=== PATIENT | male | born 1985 | race Caucasian/White ===

== ENCOUNTER 2021-06-08 18:59 | Emergency (ER) | payer OTHER ==
[~2021-06-08] VITALS: Ht 180.3 cm; Wt 95.1 kg
--- NOTE | 2021-06-08 19:29 | PHYS DOC ---
General Adult EDM: Chief Complaint: GROIN PAIN HPI: HPI: ".. I was kicking a soccer ball. and I felt something.. pop in my lower groin and bag area... this was about 1800 hrs.. and it been hurting ever since..." Patient is a 35 year old ,male who presents with above hx and complaints of left groin pain and edema since 89 hours today after kicking a soccer ball. Patient localizes pain in left testicle and groin area. Does have obvious swelling in which appears to be area of more likely hernia presentation. No history of STDs. No history of immunosuppression. No history of recent travel. No history of severe ill contacts. Patient normally healthy. 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 Review of Systems: Review of Systems: Constitutional: Denies fever or chills Eyes: Denies change in visual acuity HENT: Denies nasal congestion or sore throat Respiratory: Denies cough or shortness of breath Cardiovascular: Denies chest pain or edema GI: Denies abdominal pain, nausea, vomiting, bloody stools or diarrhea. Complains of left groin pain : Denies dysuria Musculoskeletal: Denies back pain or joint pain Integument: Denies rash Neurologic: Denies headache, focal weakness or sensory changes Endocrine: Denies polyuria or polydipsia Lymphatic: Denies swollen glands Psychiatric: Denies depression or anxiety Family History: Family History: Noncontributory to presentation Current Medications: Current Meds: See nursing for home meds Allergies: Allergies: No known drug allergies Physical Exam: PE: Constitutional: Well developed, well nourished, no acute distress, non-toxic appearance. [] HENT: Normocephalic, atraumatic, bilateral external ears normal, oropharynx moist, no oral exudates, nose normal. [] Eyes: PERRLA, EOMI, conjunctiva normal, no discharge. [] Neck: Normal range of motion, no tenderness, supple, no stridor. [] Cardiovascular:Heart rate regular rhythm, no murmur [] Lungs & Thorax: Bilateral breath sounds clear to auscultation [] Abdomen: Bowel sounds normal, soft, no tenderness, no masses, no pulsatile masses. Left inguinal mass appears to be more of hematorma vs hernia. . Testicles relatively non tender and descended. Circumcised male. No discharge. Skin: Warm, dry, no erythema, no rash. [] Back: No tenderness, no CVA tenderness. [] Extremities: No tenderness, no cyanosis, no clubbing, ROM intact, no edema. [] Neurologic: Alert and oriented X 3, normal motor function, normal sensory function, no focal deficits noted. [] Psychologic: Affect anxious, judgement normal, mood normal. [] EKG: EKG: My interpretation EKG shows a sinus rhythm at 77 bpm. No acute morphology. [] Time of this EKG is 1957 hrs. Radiology/Procedures: Radiology/Procedures: [address] [address] IMAGING REPORT Signed PATIENT: ALEXA CONSTANTINO ACCOUNT: [id number] : 1985 LOCATION: ER AGE: 35 SEX: M EXAM STATUS: REG ER ORD. PHYSICIAN: JOLENE VAIL MD REASON: Groin pain PROCEDURE: TESTICULAR/SCROTUM CLINICAL HISTORY: Reason: Groin pain / Spl. Instructions: / History: COMPARISON: None available. TECHNIQUE: Ultrasound images of the scrotum was performed with cisse-scale and color doppler. FINDINGS: The right testis measures 5.4 x 3.1 x 2.8 cm. The left testis measures 5.2 x 3.8 x 2.7. There is no intratesticular abnormality. Testicular vascularity is symmetric and within normal limits. The epididymis is normal in appearance bilaterally. There is no hydrocele or varicocele. There is multiple small lymph nodes in the left groin in the area of interest as well as heterogeneity. IMPRESSION: 1. Normal testes with normal testicular blood flow. 2. Mild lymphadenopathy in the area of interest likely reactive. A short-term follow-up ultrasound could be performed if symptoms become worse. Electronically signed by: Magali Matthews III, MD (06/08/2021 11:23 PM) [facility] DICTATED AND SIGNED BY: MAGALI MATTHEWS III, MD DATE: 06/08/21 2954 CC: JOLENE VAIL MD; PCP,UNKNOWN ~MTH0 0 [][address] [address] IMAGING REPORT Signed PATIENT: ALEXA CONSTANTINO ACCOUNT: [id number] : 1985 LOCATION: ER AGE: 35 SEX: M EXAM STATUS: REG ER ORD. PHYSICIAN: JOLENE VAIL MD REASON: Lower abd. and groin pain PROCEDURE: ACUTE ABDOMEN SERIES EXAM: 2 VIEW ABDOMEN WITH ONE VIEW CHEST. HISTORY: Abdominal and groin pain. COMPARISON: Today's CT. FINDINGS: A frontal view of the chest and supine/upright views of the abdomen are obtained. There are no confluent infiltrates. There is no pneumothorax or pleural effusion. The heart is not enlarged. There is no pneumoperitoneum. There are no distended small bowel loops or significant air-fluid levels. There is gas distally. Stool throughout the colon is consistent with constipation. IMPRESSION: 1. No confluent infiltrates. 2. No evidence of obstruction. Correlate for constipation. Electronically signed by: Ani Fajardo MD (06/08/2021 9:36 PM) [facility] DICTATED AND SIGNED BY: TAMAR FAJARDO MD DATE: 06/08/212129 CC: JOLENE VAIL MD; PCP,UNKNOWN ~MTH0 [address] [place] [id number] IMAGING REPORT Signed PATIENT: ALEXA CONSTANTINO ACCOUNT: [id number] : 1985 LOCATION: ER AGE: 35 SEX: M EXAM STATUS: REG ER ORD. PHYSICIAN: JOLENE VAIL MD REASON: OMNI 240,30ML PO.OMNI 300,75ML IV. LEFT SIDE GROIN PAIN PROCEDURE: CT ABD PELV W/ORAL&IV CONTRAST EXAM: CT ABDOMEN/PELVIS WITH CONTRAST. HISTORY: Abdominal and left groin pain. TECHNIQUE: Computed tomography of the abdomen and pelvis was performed after the intravenous administration of iodinated contrast. One or more of the following individualized dose reduction techniques were utilized for this examination: 1. Automated exposure control. 2. Adjustment of the mA and/or kV according to patient size. 3. Use of iterative reconstruction technique. COMPARISON: None. FINDINGS: Lung windows through the visualized portions of the bases reveal no abnormality. Bone windows reveal no suspicious lesions. There is mild retrolisthesis at L3-4, and bilateral L3 pars interarticularis defects. The liver, gallbladder, pancreas, adrenal glands, and spleen are unremarkable. There are no pathologically enlarged lymph nodes. There are no renal or ureteral calculi. The kidneys are unremarkable. There is subcutaneous ecchymosis along the left inguinal region. The scrotum is not included but this appears to be mostly external to the spermatic cord. There is no intrapelvic or retroperitoneal hematoma. Stool throughout the colon suggests mild constipation. The appendix is not inflamed. There is no small bowel obstruction. IMPRESSION: 1. Ecchymosis along the left inguinal region. Correlate for direct injury. No intrapelvic or retroperitoneal hematoma. Electronically signed by: Ani Fajardo MD (06/08/2021 9:36 PM) [facility] DICTATED AND SIGNED BY: TAMAR FAJARDO MD DATE: 06/08/212130 CC: JOLENE VAIL MD; PCP,UNKNOWN ~MTH0 0 Heart Score: C/O Chest Pain: N/A Risk Factors: Risk Factors: DM, Current or recent (<one month) smoker, HTN, HLP, family h istory of CAD, obesity. Risk Scores: Score 0 - 3: 2.5% MACE over next 6 weeks - Discharge Home Score 4 - 6: 20.3% MACE over next 6 weeks - Admit for Clinical Observation Score 7 - 10: 72.7% MACE over next 6 weeks - Early Invasive Strategies Course & Med Decision Making: Course & Med Decision Making Pertinent Labs and Imaging studies reviewed. (See chart for details) Patient use ice packs as needed for the next 3 days. After 3 days may advance to moist heat if no reinjury. Follow-up primary care. Have them review ED work-up. Advised patient if this is a muscle tear in the groin area it may take a long time for adequate healing. Tylenol and ibuprofen for discomfort. Impression: 1. Lt. Groin muscle tear, with hematoma [] Omid Disclaimer: Dragon Disclaimer: This electronic medical record was generated, in whole or in part, using a voice recognition dictation system. Departure Departure: Referrals: PCP,UNKNOWN (PCP) Omid Disclaimer This chart was dictated in whole or in part using Voice Recognition software in a busy, high-work load, and often noisy Emergency Department environment. It may contain unintended and wholly unrecognized errors or omissions. JOLENE VAIL MD Jun 08, 2021 19:29
[2021-06-08] MEDS ORDERED: ONDANSETRON PF 4 MG/2 ML VIAL. IVP ONE (19:45)
[2021-06-08] MEDS ORDERED: FAMOTIDINE 20 MG/2 ML VIAL IVP ONE (19:45)
[2021-06-08] MEDS ORDERED: IV RINGERS SOLUTION,LACTATED 1,000 ML IV SCH (19:45)
[2021-06-08] MEDS ORDERED: KETOROLAC 30 MG/ML VIAL. IVP ONE (19:45)
[2021-06-08] MEDS ORDERED: IOHEXOL 300 MG/ML 75 ML VIAL. IV ONE (20:00)
[2021-06-08] MEDS ORDERED: IOHEXOL 240 MG/ML 50ML VIAL. ONE (20:07)
[2021-06-08 20:32] LABS: BASO # 0.1 x10^3/uL (0.0-0.2); BASO % 1 % (0-3); EOS # 0.1 x10^3/uL (0.0-0.7); EOS % 1 % (0-3); HEMATOCRIT 41.5 % (39.0-53.0); HEMOGLOBIN 14.5 g/dL (13.0-17.5); LYMPH # 2.1 x10^3/uL (1.0-4.8); LYMPH % 18 % (24-48); MEAN CORPUSCULAR HEMOGLOBIN 33 pg (25-35); MEAN CORPUSCULAR HGB CONC 35 g/dL (31-37); MEAN CORPUSCULAR VOLUME 95 fL (79-100); MONO # 0.6 x10^3/uL (0.0-1.1); MONO % 5 % (0-9); NEUT # 8.8 x10^3uL (1.8-7.7); NEUT % 76 % (31-73); PLATELET COUNT 183 x10^3/uL (140-400); RED BLOOD COUNT 4.35 x10^6/uL (4.30-5.70); RED CELL DISTRIBUTION WIDTH 12.3 % (11.5-14.5); WHITE BLOOD COUNT 11.6 x10^3/uL (4.0-11.0)
[2021-06-08 20:43] LABS: CALCIUM 8.9 mg/dL (8.5-10.1); CREATININE 1.1 mg/dL (0.7-1.3); GFR 77.1; POTASSIUM 5.2 mmol/L (3.5-5.1)
--- NOTE | 2021-06-08 20:56 | EKG ---
[address] [address] Test Date: 2021-06-08 Test Time: 19:57:14 Pat Name: ALEXA CONSTANTINO Department: Room: Gender: M Director Of Assessment: : 1985 Requested By: JOLENE VAIL Order Number: [id number] Reading MD: Pancho Pinto Measurements Intervals [place] Rate: 77 P: 39 MD: 188 QRS: 26 QRSD: 88 T: 16 QT: 362 QTc: 411 Interpretive Statements SINUS RHYTHM Electronically Signed On 06-10-2021 7:20:04 [employer] ASSISTANT by Pancho Pinto
[2021-06-08 20:59] LABS: ALBUMIN 4.3 g/dL (3.4-5.0); DIRECT BILIRUBIN 0.1 mg/dL (0.0-0.2); TOTAL BILIRUBIN 0.8 mg/dL (0.2-1.0); TOTAL PROTEIN 7.4 g/dL (6.4-8.2)
--- NOTE | 2021-06-08 21:38 | RAD ---
EXAM: CT ABDOMEN/PELVIS WITH CONTRAST. HISTORY: Abdominal and left groin pain. TECHNIQUE: Computed tomography of the abdomen and pelvis was performed after the intravenous administ ration of iodinated contrast. One or more of the following individualized dose reduction techniques w ere utilized for this examination: 1. Automated exposure control. 2. Adjustment of the mA and/or kV according to patient size. 3. Use of iterative reconstruction technique. COMPARISON: None. FINDINGS: Lung windows through the visualized portions of the bases reveal no abnormality. Bone windo ws reveal no suspicious lesions. There is mild retrolisthesis at L3-4, and bilateral L3 pars interart icularis defects. The liver, gallbladder, pancreas, adrenal glands, and spleen are unremarkable. There are no pathologi jorge enlarged lymph nodes. There are no renal or ureteral calculi. The kidneys are unremarkable. There is subcutaneous ecchymosis along the left inguinal region. The scrotum is not included but this appears to be mostly external to the spermatic cord. There is no intrapelvic or retroperitoneal tennille geo. Stool throughout the colon suggests mild constipation. The appendix is not inflamed. There is no smal l bowel obstruction. IMPRESSION: 1. Ecchymosis along the left inguinal region. Correlate for direct injury. No intrapelvic or retroper itoneal hematoma. Electronically signed by: Ani Fajardo MD (06/08/2021 9:36 PM) [facility]
--- NOTE | 2021-06-08 21:39 | RAD ---
EXAM: 2 VIEW ABDOMEN WITH ONE VIEW CHEST. HISTORY: Abdominal and groin pain. COMPARISON: Today's CT. FINDINGS: A frontal view of the chest and supine/upright views of the abdomen are obtained. There are no confluent infiltrates. There is no pneumothorax or pleural effusion. The heart is not en larged. There is no pneumoperitoneum. There are no distended small bowel loops or significant air-fluid level s. There is gas distally. Stool throughout the colon is consistent with constipation. IMPRESSION: 1. No confluent infiltrates. 2. No evidence of obstruction. Correlate for constipation. Electronically signed by: Ani Fajardo MD (06/08/2021 9:36 PM) [facility]
[2021-06-08 23:02] LABS: BACTERIA,URINE 0 /HPF (0-FEW); BILIRUBIN,URINE NEG (NEG); CLARITY,URINE CLEAR; COLOR,URINE YELLOW; GLUCOSE,URINE NEG (NEG); NITRITE,URINE NEG (NEG); RBC,URINE 0 /HPF (0-2)
--- NOTE | 2021-06-08 23:25 | RAD ---
CLINICAL HISTORY: Reason: Groin pain / Spl. Instructions: / History: COMPARISON: None available. TECHNIQUE: Ultrasound images of the scrotum was performed with cisse-scale and color doppler. FINDINGS: The right testis measures 5.4 x 3.1 x 2.8 cm. The left testis measures 5.2 x 3.8 x 2.7. There is no intratesticular abnormality. Testicular vascularity is symmetric and within normal limit s. The epididymis is normal in appearance bilaterally. There is no hydrocele or varicocele. There is multiple small lymph nodes in the left groin in the area of interest as well as heterogeneit y. IMPRESSION: 1. Normal testes with normal testicular blood flow. 2. Mild lymphadenopathy in the area of interest likely reactive. A short-term follow-up ultrasound co uld be performed if symptoms become worse. Electronically signed by: Sandeep Roberts III, MD (06/08/2021 11:23 PM) [facility]
[2021-06-10] VITALS: BP 132/76
== END 2021-06-09 00:45 | disposition home or self-care (01) ==
LOC: ER 18:59
DX: S39.011A Strain of muscle, fascia and tendon of abdomen, initial encounter (principal); W21.02XA Struck by soccer ball, initial encounter; Y93.89 Activity, other specified; Y92.89 Other specified places as the place of occurrence of the external cause; Y99.8 Other external cause status
CPT/HCPCS: 36415; 74022; 74177; 76870; 80048; 80076; 81001; 82150; 82550; 83690; 85025; 93005; 96361; 96374; 96375; 99285; J1885; J2405; J3490; J7120; Q9967